=== PATIENT | male | born 1970 | race African-American/Black ===

== ENCOUNTER 2017-02-20 16:35 | Emergency (ER) | payer MEDICARE ==
[2017-02-20 18:19] LABS: ABSOLUTE BASOPHILS # (AUTO) 0.1 10^3/uL (0.0-0.2); ABSOLUTE EOSINOPHILS # (AUTO) 0.1 10^3/uL (0.0-0.6); ABSOLUTE LYMPHOCYTES (AUTO) 3.1 10^3/uL (0.5-4.7); ABSOLUTE MONOCYTES (AUTO) 1.1 10^3/uL (0.1-1.4); ABSOLUTE NEUT (AUTO) 7.7 10^3/uL (1.7-8.2); BASOPHILS % (AUTO) 0.8 % (0-2); EOSINOPHILS % (AUTO) 1.2 % (0-6); HEMATOCRIT 47.4 % (37.9-51.0); HGB HCT DIFFERENCE 0.6; LYMPHOCYTES % (AUTO) 25.7 % (13-45); MEAN CORPUSCULAR HEMOGLOBIN 31.1 pg (27.0-33.4); MEAN CORPUSCULAR HGB CONC 33.6 g/dL (32.0-36.0); MEAN CORPUSCULAR VOLUME 93 fl (80-97); RED BLOOD COUNT 5.12 10^6/uL (4.35-5.55); SEGMENTED NEUTROPHILS % (AUTO) 63.3 % (42-78); WHITE BLOOD COUNT 12.1 10^3/uL (4.0-10.5)
[2017-02-20 18:26] LABS: ALANINE AMINOTRANSFERASE 45 U/L (21-72); ALBUMIN 5.2 g/dL (3.5-5.0); ALCOHOL < 10 mg/dL (NONE DETECTED); ALKALINE PHOSPHATASE 107 U/L (38-126); ANION GAP 18 (5-19); ASPARTATE AMINO TRANSFERASE 63 U/L (17-59); BILIRUBIN,DIRECT 0.5 mg/dL (0.0-0.4); BILIRUBIN,TOTAL 0.6 mg/dL (0.2-1.3); BLOOD UREA NITROGEN 4 mg/dL (7-20); CALCIUM 10.5 mg/dL (8.4-10.2); CARBON DIOXIDE 23 mmol/L (22-30); CHLORIDE 102 mmol/L (98-107); CREATININE RESULT 0.72 mg/dL (0.52-1.25); GLUCOSE 101 mg/dL (75-110); MAGNESIUM 1.9 mg/dL (1.6-2.3); POTASSIUM 4.6 mmol/L (3.6-5.0); SODIUM 142.5 mmol/L (137-145); TOTAL PROTEIN 8.8 g/dL (6.3-8.2)
[2017-02-20] MEDS ORDERED: LEVETIRACETAM 1000 MG/NACL-ISO 1,000 MG/100 ML RTUPB IV ONE (18:45)
--- NOTE | 2017-02-20 18:55 | ER Document Report ---
ED Seizure - General Chief Complaint: Seizure Stated Complaint: PROBABLE SEIZURE Time Seen by Provider: 02/20/17 17:54 Mode of Arrival: Ambulatory Information source: Patient - HPI Patient complains to provider of: History of seizures Quality of pain: No pain Current seizure medications: Keppra Character of seizure: Generalized shaking Post-ictal symptoms: Confusion Injuries: None Notes: Patient is a 47-year-old male with a history of seizure disorder who presents to the emergency room today after having 2 seizures, the first 1 lasting a few minutes, the second one was in the waiting room and lasted approximately 4 minutes, patient denies any pain or injury from the seizures, his longwall headgate operator at bedside does report he was confused afterwards but his mentation is cleared completely, patient takes Keppra for his seizures and denies missing any doses recently, denies any recent illness or any area as well, his last seizure prior to today was 6 months ago - Related Data Allergies/Adverse Reactions: No Known Allergies Allergy (Verified 02/20/17 16:40) Past Medical History - General Information source: Patient, Relative - Social History Smoking Status: Current Every Day Smoker Frequency of alcohol use: None Drug Abuse: None Family History: Reviewed & Not Pertinent Pulmonary Medical History: Reports: Hx Pneumonia Neurological Medical History: Reports: Hx Seizures - ETOH induced Renal/ Medical History: Denies: Hx Peritoneal Dialysis - Immunizations Hx Diphtheria, Pertussis, Tetanus Vaccination: No Review of Systems - Review of Systems Constitutional: No symptoms reported EENT: No symptoms reported Cardiovascular: No symptoms reported Respiratory: No symptoms reported Gastrointestinal: No symptoms reported Genitourinary: No symptoms reported Male Genitourinary: No symptoms reported Musculoskeletal: No symptoms reported Skin: No symptoms reported Hematologic/Lymphatic: No symptoms reported Neurological/Psychological: See HPI -: Yes All other systems reviewed and negative Physical Exam - Vital signs Vitals: Temp Pulse Resp BP Pulse Ox 98.3 F 82 20 138/95 H 99 02/20/17 16:41 02/20/17 16:41 02/20/17 16:41 02/20/17 16:41 02/20/17 16:41 Interpretation: Normal - General General appearance: Appears well, Alert - HEENT Head: Normocephalic, Atraumatic Eyes: Other - 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 Pupils: PERRL - Respiratory Respiratory status: No respiratory distress Chest status: Nontender Breath sounds: Normal Chest palpation: Normal - Cardiovascular Rhythm: Regular Heart sounds: Normal auscultation Murmur: No - Abdominal Inspection: Normal Distension: No distension Bowel sounds: Normal Tenderness: Nontender Organomegaly: No organomegaly - Back Back: Normal, Nontender - Extremities General upper extremity: Normal inspection, Nontender, Normal color, Normal ROM , Normal temperature General lower extremity: Normal inspection, Nontender, Normal color, Normal ROM , Normal temperature, Normal weight bearing. No: Gunnar's sign - Neurological Neuro grossly intact: Yes Cognition: Normal Orientation: AAOx4 [place] Coma Scale Eye Opening: Spontaneous [place] Coma Scale Verbal: Oriented [place] Coma Scale Motor: Obeys Commands [place] Coma Scale Total: 15 Speech: Normal Motor strength normal: LUE, RUE, LLE, RLE Sensory: Normal - Psychological Associated symptoms: Normal affect, Normal mood - Skin Skin Temperature: Warm Skin Moisture: Dry Skin Color: Normal Course - Re-evaluation Re-evalutation: 02/20/17 19:38 Patient feeling much better and ready to go home, labs were discussed with him at bedside which are unremarkable, was provided with information for follow-up with neurology and advised additional concerns, patient and longwall headgate operator at bedside acknowledge understanding and agreement with this plan - Vital Signs Vital signs: Temp Pulse Resp BP Pulse Ox 98.3 F 82 20 138/95 H 99 02/20/17 16:41 02/20/17 16:41 02/20/17 16:41 02/20/17 16:41 02/20/17 16:41 - Laboratory Result Diagrams: 02/20/17 17:55 02/20/17 17:55 Laboratory results interpreted by me: 02/20/17 02/20/17 02/20/17 17:55 17:55 18:34 WBC 12.1 H BUN 4 L POC Glucose 112 H Calcium 10.5 H Direct Bilirubin 0.5 H AST 63 H Total Protein 8.8 H Albumin 5.2 H Urine Ascorbic Acid 02/20/17 18:50 WBC BUN POC Glucose Calcium Direct Bilirubin AST Total Protein Albumin Urine Ascorbic Acid 20 H Discharge - Discharge Clinical Impression: Seizure Condition: Stable Disposition: HOME, SELF-CARE Instructions: Seizure, 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 Return to the emergency room immediately if symptoms worsen or any additional concerns. Referrals: AYAN PETE MD [Primary Care Provider] - Follow up as needed
[2017-02-20 19:20] LABS: APPEARANCE,URINE CLEAR; BILIRUBIN,URINE NEGATIVE (NEGATIVE); GLUCOSE, URINE NEGATIVE (NEGATIVE); KETONES,URINE NEGATIVE (NEGATIVE); LEUKOCYTE ESTERASE,URINE NEGATIVE (NEGATIVE); NITRITE,URINE NEGATIVE (NEGATIVE); PROTEIN,URINE NEGATIVE (NEGATIVE); URINE SPECIFIC GRAVITY 1.004; UROBILINOGEN,URINE NEGATIVE mg/dL (<2.0)
[2017-02-20 19:34] LABS: URINE BARBITURATES SCREEN NEGATIVE; URINE METHADONE SCREEN NEGATIVE; URINE OPIATES LOW NEGATIVE; URINE PHENCYCLIDINE SCREEN NEGATIVE
[2017-02-20 20:00] VITALS: BP 132/78
--- NOTE | 2017-02-20 20:37 | EKG REPORT ---
SEVERITY:- ABNORMAL ECG - SINUS RHYTHM LEFT ATRIAL ABNORMALITY LEFT AXIS DEVIATION : Confirmed by: Troy Bowers 20-Feb-2017 20:36:28
== END 2017-02-20 20:01 | disposition home or self-care (01) ==
LOC: ER 16:35
DX: R56.9 Unspecified convulsions (principal); Z79.899 Other long term (current) drug therapy; F17.200 Nicotine dependence, unspecified, uncomplicated
CPT/HCPCS: 93005; 99284; 96365; 36415; 80177; 82962; 80307 ×2; 83735; 85025; 80053; 81001; 93010; J1953

== ENCOUNTER 2017-12-29 12:01 | Emergency (ER) | payer MEDICARE, MEDICAID ==
--- NOTE | 2017-12-29 12:11 | ER Document Report ---
HPI - HPI Patient complains to provider of: Rash Onset: Other Pain Level: 0 Context: 47-year-old male complaining of hives in his right forearm neck with scratchy throat today thinking it was possible allergic reaction to the penicillin he is taking prior to dental surgery that is scheduled for next month. He started the penicillin on December 23 and is supposed to take it for 1 week. No chest pain or shortness of breath. No history of C. difficile. Associated Symptoms: None Exacerbated by: Denies Relieved by: Denies Similar symptoms previously: No Recently seen / treated by doctor: No - ROS ROS below otherwise negative: Yes Systems Reviewed and Negative: Yes All other systems reviewed and negative Past Medical History - General Information source: Patient - Social History Smoking Status: Current Every Day Smoker Frequency of alcohol use: None Drug Abuse: None Lives with: Family Family History: Reviewed & Not Pertinent Pulmonary Medical History: Reports: Hx Pneumonia Neurological Medical History: Reports: Hx Seizures - ETOH induced Renal/ Medical History: Denies: Hx Peritoneal Dialysis Surgical Hx: Negative - Immunizations Hx Diphtheria, Pertussis, Tetanus Vaccination: No Vertical Provider Document - CONSTITUTIONAL Agree With Documented VS: Yes Exam Limitations: No Limitations - INFECTION CONTROL TRAVEL OUTSIDE OF THE [place] IN LAST 30 DAYS: No - HEENT Notes: Extensive dental decay, posterior pharynx airway is open with no edema no edema to the tongue. - NECK Neck: Supple. negative: Lymphadenopathy-Left, Lymphadenopathy-Right - RESPIRATORY Respiratory: Breath Sounds Normal, No Respiratory Distress - CARDIOVASCULAR Cardiovascular: Regular Rate, Regular Rhythm - DERM Integumentary: Rash - Small wheals dorsal right arm that are pink, none on the neck Discharge - Discharge Clinical Impression: Urticaria Condition: Good Disposition: HOME, SELF-CARE Instructions: Acute Urticaria ([facility]), Use of Diphenhydramine, Clindamycin ([facility]) Additional Instructions: Stop the penicillin Start clindamycin See the dentist as planned Return to the emergency room for worsening of the symptoms Prescriptions: Clindamycin HCl [Cleocin 150 mg Capsule] 300 mg PO TID #42 capsule Referrals: AYAN PETE MD [Primary Care Provider] - Follow up as needed
[2017-12-29 12:14] VITALS: BP 148/81
[2017-12-29] MEDS ORDERED: DIPHENHYDRAMINE HCL 50 MG CAPSULE PO ONE (12:25)
[2017-12-29] MEDS ORDERED: FAMOTIDINE 20 MG TABLET PO ONE (12:25)
[2017-12-29] MEDS ORDERED: DIPHENHYDRAMINE HCL 25 MG/10 ML UDC ONE (12:44)
[2017-12-29] MEDS ORDERED: DIPHENHYDRAMINE HCL 25 MG/10 ML UDC PO ONE (12:44)
== END 2017-12-29 12:58 | disposition home or self-care (01) ==
LOC: ER 12:01
DX: L50.9 Urticaria, unspecified (principal); F17.200 Nicotine dependence, unspecified, uncomplicated
CPT/HCPCS: 99283; A9270 ×2; J3490

== ENCOUNTER → 2018-02-06 | Outpatient (CLI) | payer MEDICARE, MEDICAID ==
[2018-02-07 11:43] LABS: ABSOLUTE EOSINOPHILS # (AUTO) 0.3 10^3/uL (0.0-0.6); ABSOLUTE LYMPHOCYTES (AUTO) 3.1 10^3/uL (0.5-4.7); ABSOLUTE MONOCYTES (AUTO) 0.8 10^3/uL (0.1-1.4); ABSOLUTE NEUT (AUTO) 5.6 10^3/uL (1.7-8.2); BASOPHILS % (AUTO) 0.5 % (0-2); HEMATOCRIT 44.8 % (37.9-51.0); HEMOGLOBIN 15.5 g/dL (13.5-17.0); LYMPHOCYTES % (AUTO) 31.5 % (13-45); MEAN CORPUSCULAR HEMOGLOBIN 31.4 pg (27.0-33.4); MEAN CORPUSCULAR HGB CONC 34.7 g/dL (32.0-36.0); MEAN CORPUSCULAR VOLUME 91 fl (80-97); MONOCYTES % (AUTO) 7.7 % (3-13); PLATELET COUNT 344 10^3/uL (150-450); RED BLOOD COUNT 4.95 10^6/uL (4.35-5.55); RED CELL DISTRIBUTION WIDTH 13.6 % (11.5-14.0); SEGMENTED NEUTROPHILS % (AUTO) 57.3 % (42-78); TOTAL CELLS COUNTED % (AUTO) 100 %; WHITE BLOOD COUNT 9.8 10^3/uL (4.0-10.5)
[2018-02-07 13:05] LABS: ALANINE AMINOTRANSFERASE 29 U/L (21-72); ALBUMIN 4.8 g/dL (3.5-5.0); ALKALINE PHOSPHATASE 63 U/L (38-126); ANION GAP 17 (5-19); ASPARTATE AMINO TRANSFERASE 38 U/L (17-59); BILIRUBIN,DIRECT 0.4 mg/dL (0.0-0.4); BILIRUBIN,TOTAL 0.5 mg/dL (0.2-1.3); BLOOD UREA NITROGEN 6 mg/dL (7-20); CALCIUM 9.9 mg/dL (8.4-10.2); CARBON DIOXIDE 20 mmol/L (22-30); CHLORIDE 105 mmol/L (98-107); GLUCOSE 103 mg/dL (75-110); POTASSIUM 3.8 mmol/L (3.6-5.0); SODIUM 142.4 mmol/L (137-145); TOTAL PROTEIN 8.1 g/dL (6.3-8.2)
[2018-02-10 07:36] LABS: HEPATITIS C VIRUS AB >11.0 s/co ratio (0.0-0.9)
[2018-02-12 14:42] LABS: HEPATITIS C QUANTITATION 1470000 IU/mL (.)
[2018-02-12 16:00] LABS: HEPATITIS C LOG10 6.167 (.)
== END ==
LOC: OD 15:46
PROVIDERS: ATTEND Family Medicine
DX: B18.2 Chronic viral hepatitis C (principal)
CPT/HCPCS: 36415; 80053; 85025; 86803; 86804; 87522

== ENCOUNTER → 2018-03-26 | Day surgery (SDC) | payer MEDICARE, MEDICAID ==
[~2018-03-26] MED LIST: LACTATED RINGERS 1000 ML IV PRN; LIDOCAINE 0.5% INJ-PF (5 MG/ML) 50 ML SDV SUBCUT PRN
== END ==
LOC: OROUT 11:28
PROVIDERS: ATTEND Dentist Oral and Maxillofacial Surgery
DX: R69 Illness, unspecified (principal)

== ENCOUNTER 2018-04-14 10:09 | Day surgery (SDC) | payer MEDICARE, MEDICAID ==
[~2018-04-14 10:09] MED LIST changes: +ACETAMINOPHEN 1,000 MG/100 ML RTUPB IV ONE; +BUPIVACAINE HCL 0.5%/EPI 1:200000 INJ 1.8 ML CARTRIDGE ONE; +DEXAMETHASONE SOD PHOSPHATE INJ 4 MG/1 ML VIAL ONE; +FENTANYL CITRATE INJ/PF 100 MCG/2 ML AMPUL ONE; +LIDOCAINE 2%/EPINEPHRINE INJ 1.7 ML CARTRIDGE ONE; +MIDAZOLAM 2 MG/2 ML INJ ONE; +ONDANSETRON HCL INJ/PF 4 MG/2 ML SDV ONE; +PHENYLEPHRINE HCL 0.25% NASAL SPRAY 15 ML ONE; +PROPOFOL INJ 200 MG/20 ML VIAL IV ONE; +SUCCINYLCHOLINE CHLORIDE INJ 200 MG/10 ML VIAL ONE
[2018-04-14] MEDS ORDERED: MORPHINE SULFATE 10 MG/ML INJ IV PRN (11:43)
[2018-04-14] MEDS ORDERED: DIPHENHYDRAMINE HCL 50 MG/ML VIAL IV PRN (11:43)
[2018-04-14] MEDS ORDERED: FENTANYL CITRATE INJ/PF 100 MCG/2 ML AMPUL IV PRN ×3 (11:43)
[2018-04-14] MEDS ORDERED: ONDANSETRON HCL INJ/PF 4 MG/2 ML SDV IV PRN (11:43)
[2018-04-14] MEDS ORDERED: MEPERIDINE HCL/PF INJ 25 MG/1 ML DISP.SYRIN IV PRN (11:43)
[2018-04-14] MEDS ORDERED: PROMETHAZINE HCL INJ 25 MG/1 ML VIAL IV PRN ×2 (11:43)
[2018-04-14] MEDS ORDERED: OXYCODONE-ACETAMINOPHEN 5-325 MG TABLET PO PRN (13:54)
--- NOTE | 2018-04-14 14:39 | Operative Report ---
Operative Report DATE OF SURGERY: 04/14/18 PREOPERATIVE DIAGNOSIS: Dental caries POSTOPERATIVE DIAGNOSIS: Same OPERATION: Surgical removal of teeth numbers 1, 2, 3, 4, 5, 6, 7, 8, 10, 11, 12 , 13, 14, 15, 16, 18, 19, 20, 21, 30, 31 and 32 with alveloplasties of all 4 quadrants SURGEON: LAURA HINOJOSA ANESTHESIA: GA TISSUE REMOVED OR ALTERED: Teeth and bone which were discarded COMPLICATIONS: None ESTIMATED BLOOD LOSS: 25 mL INTRAOPERATIVE FINDINGS: Grossly decayed and nonrestorable teeth PROCEDURE: The patient was brought into operating room #3 and placed on the operating room table in supine position. General anesthesia was induced via a peripheral IV and continued utilizing nasoendotracheal intubation. The patient was then prepped and draped in the usual fashion for an intraoral procedure. A total of 5 carpules of 2% Lidocaine with 1:100K Epi and 2 carpules of 0.5% Marcaine with 1:200K Epi were delivered to the planned surgical sites via both infiltration and nerve block. The oral cavity and oropharynx were suctioned and a moistened oropharyngeal throat pack was placed. A bite block was used throughout the procedure. Full thickness mucoperisteal flaps were elevated. Ostectomy was completed as needed. Teeth were sectioned as needed. Teeth were delivered with elevators and forceps. Alveoloplasties were completed using rongeurs and bone files. All sites debrided and irrigated. No sinus exposure noted. Mandible intact post op. INESSA not visualized. Wounds reapproximated and sutured with 4-0 chromic gut. The oral cavity was suctioned and found to be free of debris. The throat pack was removed. The oropharynx was suctioned. Gauze packs were placed bilaterally to aid in continued hemastasis. The patient was awakened from general anesthesia, extubated in the operating room and taken to recovery in spontaneous breathing fashion.
[2018-04-14 15:45] VITALS: BP 165/94
== END 2018-04-14 15:25 | disposition home or self-care (01) ==
LOC: OROUT 10:09
PROVIDERS: ATTEND Dentist Oral and Maxillofacial Surgery
DX: K02.9 Dental caries, unspecified (principal); K08.89 Other specified disorders of teeth and supporting structures; F17.210 Nicotine dependence, cigarettes, uncomplicated; E03.9 Hypothyroidism, unspecified; G81.91 Hemiplegia, unspecified affecting right dominant side; G40.909 Epilepsy, unspecified, not intractable, without status epilepticus; B19.20 Unspecified viral hepatitis C without hepatic coma; Z88.0 Allergy status to penicillin; Z79.899 Other long term (current) drug therapy
CPT/HCPCS: 41899; 41874 ×4; J2250; J3490; J1100; J3010; A9270; J0330; J2405; J2704; J0131

== ENCOUNTER 2020-04-10 18:49 | Inpatient (IN) | payer MEDICARE, MEDICAID ==
--- NOTE | 2020-04-10 19:01 | ER Document Report ---
ED Medical Screen (RME) - General Chief Complaint: Weakness Stated Complaint: WEAKNESS Time Seen by Provider: 04/10/20 18:56 Primary Care Provider: SILVIA BRADY DO [Primary Care Provider] - Follow up as needed Mode of Arrival: Wheelchair Information source: Relative Notes: 50-year-old male presented to ED for increasing tremors, confusion, disorientation, staring off to the right. Family member states they took him to the doctor today they told him they would call results of blood work and CT but that has not been done as yet. Family member states his symptoms are increasing and she is concerned and wanted him evaluated for strokelike symptoms. Patient is not in able to answer questions appropriately does have contractures to the right hand. He does have tremors to the right hand. He does stare off to the right side. I have greeted and performed a rapid initial assessment of this patient. A comprehensive ED assessment and evaluation of the patient, analysis of test results and completion of medical decision making process will be conducted by an additional ED providers. TRAVEL OUTSIDE OF THE [place] IN LAST 30 DAYS: No - Related Data Allergies/Adverse Reactions: Penicillins Adverse Reaction (Verified 03/16/18 12:19) Past Medical History - Past Medical History Cardiac Medical History: Denies: Hx Coronary Artery Disease, Hx Heart Attack, Hx Hypertension Pulmonary Medical History: Reports: Hx Pneumonia - 2016 Denies: Hx Asthma, Hx Bronchitis, Hx COPD Neurological Medical History: Reports: Hx Seizures - ETOH induced, LAST EPISODE NOVEMBER 2017.. Denies: Hx Cerebrovascular Accident Renal/ Medical History: Denies: Hx Peritoneal Dialysis Musculoskeltal Medical History: Denies Hx Arthritis - Immunizations Hx Diphtheria, Pertussis, Tetanus Vaccination: No Physical Exam - Vital signs Vitals: Temp Pulse Resp BP Pulse Ox 100.6 F H 105 H 16 122/72 100 04/10/20 18:54 04/10/20 18:54 04/10/20 18:54 04/10/20 18:54 04/10/20 18:54 Course - Vital Signs Vital signs: Temp Pulse Resp BP Pulse Ox 100.6 F H 105 H 16 122/72 100 04/10/20 18:54 04/10/20 18:54 04/10/20 18:54 04/10/20 18:54 04/10/20 18:54 Doctor's Discharge - Discharge Referrals: SILVIA BRADY, [Primary Care Provider] - Follow up as needed
--- NOTE | 2020-04-10 19:17 | RADIOLOGY REPORT (SQ) ---
EXAM DESCRIPTION: CHEST SINGLE VIEW IMAGES COMPLETED DATE/TIME: 04/10/2020 7:10 pm REASON FOR STUDY: Strokelike symptoms COMPARISON: 2016 EXAM PARAMETERS: NUMBER OF VIEWS: One view. TECHNIQUE: Single frontal radiographic view of the chest acquired. RADIATION DOSE: NA LIMITATIONS: None. FINDINGS: LUNGS AND PLEURA: No opacities, masses or pneumothorax. No pleural effusion. MEDIASTINUM AND HILAR STRUCTURES: No masses. Contour normal. HEART AND VASCULAR STRUCTURES: Heart normal in size. Normal vasculature. BONES: No acute findings. HARDWARE: None in the chest. OTHER: No other significant finding. IMPRESSION: NO ACUTE RADIOGRAPHIC FINDING IN THE CHEST. TECHNICAL DOCUMENTATION: JOB ID: [id number] 2010 [employer]- All Rights Reserved Reading location - IP/workstation name: [email or web address]
--- NOTE | 2020-04-10 19:36 | RADIOLOGY REPORT (SQ) ---
EXAM DESCRIPTION: CT HEAD WITHOUT IMAGES COMPLETED DATE/TIME: 04/10/2020 7:25 pm REASON FOR STUDY: Strokelike symptoms COMPARISON: 2016 TECHNIQUE: Axial images acquired through the brain without intravenous contrast. Images reviewed wi th bone, brain and subdural windows. Additional sagittal and coronal reconstructions were generated. Images stored on PACS. All CT scanners at this facility use dose modulation, iterative reconstruction, and/or weight based d osing when appropriate to reduce radiation dose to as low as reasonably achievable (ALARA). [facility]: Dose Right [facility]: CareDose [facility]: Dose Right [facility]: Teradose 4D [facility]: [employer] RADIATION DOSE: CT Rad equipment meets quality standard of care and radiation dose reduction techniq ues were employed. CTDIvol: 53.2 mGy. DLP: 1017 mGy-cm. mGy. LIMITATIONS: None. FINDINGS: VENTRICLES: Normal size and contour. CEREBRUM: No masses. No hemorrhage. No midline shift. Pre-existing left posterior parietal encepha lomalacia. Pre-existing left frontal encephalomalacia. 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 No evidence for acute infarction. Normal contreras/white matter differentiation. No areas of low density in the white matter. CEREBELLUM: No masses. No hemorrhage. No alteration of density. No evidence for acute infarction. EXTRAAXIAL SPACES: No fluid collections. No masses. ORBITS AND GLOBE: Left optic prosthesis. CALVARIUM: Craniotomy changes on the left. PARANASAL SINUSES: No fluid or mucosal thickening. SOFT TISSUES: No mass or hematoma. OTHER: No other significant finding. IMPRESSION: There are chronic findings. There is no acute intracranial imaging finding. EVIDENCE OF ACUTE STROKE: NO. COMMENT: Quality ID # [id number]: Final reports with documentation of one or more dose reduction techniques (e.g., Automated exposure control, adjustment of the mA and/or kV according to patient size, use of iterative reconstruction technique) TECHNICAL DOCUMENTATION: JOB ID: [id number] 2010 [employer]- All Rights Reserved Reading location - IP/workstation name: [email or web address]
--- NOTE | 2020-04-10 19:37 | EKG REPORT ---
SEVERITY:- ABNORMAL ECG - SINUS TACHYCARDIA KIMBERLI, CONSIDER BIATRIAL ABNORMALITIES INFERIOR INFARCT, AGE INDETERMINATE : Confirmed by: Griffin Caal MD 10-Apr-2020 19:36:44
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
[2020-04-10] MEDS ORDERED: ACETAMINOPHEN 325 MG TABLET PO ONE (20:26)
[2020-04-10] MEDS ORDERED: LORAZEPAM INJ 2 MG/1 ML VIAL IV ONE (20:28)
[2020-04-10] MEDS ORDERED: RINGERS SOLUTION,LACTATED 1,000 ML IV PRN (20:29)
[2020-04-10 20:51] LABS: ABSOLUTE BASOPHILS # (AUTO) 0.2 10^3/uL (0.0-0.2); ABSOLUTE EOSINOPHILS # (AUTO) 0.1 10^3/uL (0.0-0.6); ABSOLUTE LYMPHOCYTES (AUTO) 2.9 10^3/uL (0.5-4.7); ABSOLUTE MONOCYTES (AUTO) 1.5 10^3/uL (0.1-1.4); ABSOLUTE NEUT (AUTO) 9.5 10^3/uL (1.7-8.2); BASOPHILS % (AUTO) 1.2 % (0-2); EOSINOPHILS % (AUTO) 0.5 % (0-6); HEMATOCRIT 51.6 % (37.9-51.0); LYMPHOCYTES % (AUTO) 20.6 % (13-45); MEAN CORPUSCULAR HEMOGLOBIN 31.5 pg (27.0-33.4); MEAN CORPUSCULAR HGB CONC 34.8 g/dL (32.0-36.0); MEAN CORPUSCULAR VOLUME 90 fl (80-97); MONOCYTES % (AUTO) 10.4 % (3-13); PLATELET COUNT 387 10^3/uL (150-450); RED BLOOD COUNT 5.71 10^6/uL (4.35-5.55); RED CELL DISTRIBUTION WIDTH 13.3 % (11.5-14.0); SEGMENTED NEUTROPHILS % (AUTO) 67.3 % (42-78); TOTAL CELLS COUNTED % (AUTO) 100 %; WHITE BLOOD COUNT 14.2 10^3/uL (4.0-10.5)
[2020-04-10 21:14] LABS: ALBUMIN 5.7 g/dL (3.5-5.0); ALKALINE PHOSPHATASE 91 U/L (38-126); ANION GAP 17 (5-19); ASPARTATE AMINO TRANSFERASE 41 U/L (17-59); BILIRUBIN,DIRECT 0.5 mg/dL (0.0-0.4); BILIRUBIN,TOTAL 0.9 mg/dL (0.2-1.3); BLOOD UREA NITROGEN 10 mg/dL (7-20); CALCIUM 11.4 mg/dL (8.4-10.2); CARBON DIOXIDE 24 mmol/L (22-30); CHLORIDE 99 mmol/L (98-107); GLUCOSE 91 mg/dL (75-110); POTASSIUM 4.9 mmol/L (3.6-5.0); TOTAL PROTEIN 9.8 g/dL (6.3-8.2)
[2020-04-10 21:15] LABS: ALCOHOL < 10 mg/dL (NONE DETECTED)
[2020-04-10 22:18] LABS: VENOUS BLOOD BASE EXCESS 0.1 mmol/L; VENOUS BLOOD HCO3 25.2 mmol/L (20-32); VENOUS BLOOD PCO2 42.3 mmHg (35-63); VENOUS BLOOD PH 7.39 (7.30-7.42)
[2020-04-11 01:03] LABS: APPEARANCE,URINE CLEAR; BILIRUBIN,URINE NEGATIVE (NEGATIVE); COLOR,URINE YELLOW; GLUCOSE, URINE >=500 mg/dL (NEGATIVE); KETONES,URINE 20 mg/dL (NEGATIVE); LEUKOCYTE ESTERASE,URINE NEGATIVE (NEGATIVE); NITRITE,URINE NEGATIVE (NEGATIVE); PROTEIN,URINE NEGATIVE (NEGATIVE); URINE SPECIFIC GRAVITY 1.017; UROBILINOGEN,URINE NEGATIVE mg/dL (<2.0)
[2020-04-11 01:21] LABS: A TYPE INFLUENZA AG NEGATIVE (NEGATIVE); B INFLUENZA AG NEGATIVE (NEGATIVE)
[2020-04-11] MEDS ORDERED: LEVETIRACETAM 1000 MG/NACL-ISO 1,000 MG/100 ML RTUPB IV ONE (01:27)
[2020-04-11] MEDS ORDERED: LIDOCAINE 1% INJ-PF (10 MG/ML) 30 ML SDV INJ ONE (01:28)
[2020-04-11 01:35] LABS: URINE AMPHETAMINES SCREEN NEGATIVE; URINE BARBITURATES SCREEN NEGATIVE; URINE BENZODIAZEPINES SCREEN NEGATIVE; URINE COCAINE SCREEN NEGATIVE; URINE MARIJUANA (THC) SCREEN NEGATIVE; URINE METHADONE SCREEN NEGATIVE; URINE PHENCYCLIDINE SCREEN NEGATIVE
[2020-04-11] MEDS ORDERED: CEFTRIAXONE INJ 1000 MG VIAL IV ONE (02:32)
[2020-04-11] MEDS ORDERED: VANCOMYCIN HCL INJ 1000 MG VIAL IV ONE (02:32)
[2020-04-11] MEDS ORDERED: ACYCLOVIR SODIUM INJ/PF 500 MG/10 ML SDV IV ONE (02:34)
[2020-04-11] MEDS ORDERED: KETOROLAC TROMETHAMINE INJ/PF 30 MG/1 ML SDV IV ONE (02:35)
[2020-04-11 03:20] LABS: APPEARANCE ALL TUBES CLEAR; COLOR ALL TUBES COLORLESS; CSF TUBE NUMBER 1; VOLUME TUBE 2 1.5 CC; VOLUME TUBE 3 1.5 CC
[2020-04-11 03:21] LABS: CSF TOTAL VOLUME 6.3 CC; VOLUME TUBE 1 1.5 CC; VOLUME TUBE 4 1.8 CC
[2020-04-11 03:30] LABS: APPEARANCE ALL TUBES CLEAR; COLOR ALL TUBES COLORLESS; CSF TOTAL VOLUME 6.3 CC; CSF TUBE NUMBER 4; VOLUME TUBE 1 1.5 CC; VOLUME TUBE 2 1.5 CC; VOLUME TUBE 3 1.5 CC; VOLUME TUBE 4 1.8 CC
[2020-04-11 03:35] LABS: GLUCOSE,CSF 85 mg/dL (40-70); PROTEIN,CSF 39 mg/dL (12-60)
[2020-04-11 03:51] LABS: WHITE BLOOD CELL,CSF 5 /uL (0-5)
[2020-04-11 03:52] LABS: RED BLOOD CELL,CSF 16 /uL (0-10)
[2020-04-11 04:05] LABS: RED BLOOD CELL,CSF 2 /uL (0-10)
[2020-04-11 04:06] LABS: WHITE BLOOD CELL,CSF 4 /uL (0-5)
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
[2020-04-11] MEDS ORDERED: INFLUENZA QUAD (6MOS+) 2020-21 VAC 0.5 ML SYR IM ONE (13:15)
[2020-04-11] MEDS ORDERED: ALBUTEROL SULFATE 0.083% NEB 2.5 MG/3 ML AMPUL NEB PRN (20:19)
[2020-04-11] MEDS ORDERED: ONDANSETRON HCL INJ/PF 4 MG/2 ML SDV IV PRN (20:19)
[2020-04-11] MEDS ORDERED: MAG HYDROX/AL HYDROX/SIMETH SUSP 30 ML UDCUP PO PRN (20:19)
[2020-04-11] MEDS: NORMAL SALINE 1000 ML 1,000 ML IV PRN (21:06)
[2020-04-11] MEDS: ACETAMINOPHEN 325 MG TABLET PO PRN (23:38)
[2020-04-12 04:50] LABS: ALKALINE PHOSPHATASE 53 U/L (38-126); ANION GAP 13 (5-19); ASPARTATE AMINO TRANSFERASE 34 U/L (17-59); BILIRUBIN,DIRECT 0.4 mg/dL (0.0-0.4); BILIRUBIN,TOTAL 0.7 mg/dL (0.2-1.3); BLOOD UREA NITROGEN 12 mg/dL (7-20); CALCIUM 9.7 mg/dL (8.4-10.2); CARBON DIOXIDE 18 mmol/L (22-30); CHLORIDE 108 mmol/L (98-107); GLUCOSE 97 mg/dL (75-110); POTASSIUM 4.1 mmol/L (3.6-5.0); TOTAL PROTEIN 6.8 g/dL (6.3-8.2)
[2020-04-12 04:54] LABS: HEMATOCRIT 39.7 % (37.9-51.0); MEAN CORPUSCULAR HGB CONC 34.3 g/dL (32.0-36.0); MEAN CORPUSCULAR VOLUME 90 fl (80-97); PLATELET COUNT 340 10^3/uL (150-450); RED CELL DISTRIBUTION WIDTH 13.2 % (11.5-14.0); WHITE BLOOD COUNT 13.8 10^3/uL (4.0-10.5)
[2020-04-12 05:09] LABS: HEMOGLOBIN 13.6 g/dL (13.5-17.0)
[2020-04-12] MEDS: NORMAL SALINE 1000 ML 1,000 ML IV PRN (05:44)
[2020-04-12] MEDS ORDERED: VANCOMYCIN HCL 0 MG in DEXTROSE 5%-WATER 250 ML IV NR (08:30)
[2020-04-12] MEDS: ENOXAPARIN SODIUM INJ 40 MG/0.4 ML DISP.SYRIN SUBCUT SCH (09:24)
[2020-04-12] MEDS: LEVETIRACETAM 500 MG TABLET PO SCH ×3 (09:24→18:44)
[2020-04-12] MEDS: DOCUSATE SODIUM 100 MG CAPSULE PO SCH (09:24)
[2020-04-12] MEDS ORDERED: CEFTRIAXONE 2 GM/D5W RTU 2 GM/50 ML RTUPB IV SCH (10:00)
[2020-04-12] MEDS ORDERED: ACYCLOVIR SODIUM 500 MG in NORMAL SALINE 100 ML IV SCH (14:00)
[2020-04-12] MEDS ORDERED: VANCOMYCIN HCL 750 MG in DEXTROSE 5%-WATER 250 ML IV SCH (16:00)
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
[2020-04-12 19:16] LABS: APPEARANCE,URINE CLOUDY; BILIRUBIN,URINE NEGATIVE (NEGATIVE); COLOR,URINE YELLOW; GLUCOSE, URINE NEGATIVE (NEGATIVE); KETONES,URINE NEGATIVE (NEGATIVE); LEUKOCYTE ESTERASE,URINE MODERATE (NEGATIVE); NITRITE,URINE NEGATIVE (NEGATIVE); PROTEIN,URINE NEGATIVE (NEGATIVE); UROBILINOGEN,URINE NEGATIVE mg/dL (<2.0)
[2020-04-12] MEDS ORDERED: NICOTINE 7 MG/24 HR PATCH.TD24 TD PRN (19:46)
[2020-04-12] MEDS ORDERED: LORAZEPAM INJ 2 MG/1 ML VIAL IV PRN (19:50)
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
[2020-04-12] MEDS: ACETAMINOPHEN 325 MG TABLET PO PRN (23:17)
[2020-04-13] MEDS: FOLIC ACID 1 MG TABLET PO SCH (09:35)
[2020-04-13] MEDS: DOCUSATE SODIUM 100 MG CAPSULE PO SCH (09:35)
[2020-04-13] MEDS: THIAMINE HCL 100 MG TABLET PO SCH (09:36)
[2020-04-13] MEDS: LEVETIRACETAM 500 MG TABLET PO SCH ×3 (09:36→21:08)
[2020-04-13] MEDS: ENOXAPARIN SODIUM INJ 40 MG/0.4 ML DISP.SYRIN SUBCUT SCH (09:37)
[2020-04-13 10:59] LABS: HSV SOURCE CSF
[2020-04-13] MEDS ORDERED: LORAZEPAM INJ 2 MG/1 ML VIAL IV ONE ×2 (14:13→14:18)
[2020-04-13] MEDS ORDERED: LEVETIRACETAM 500 MG TABLET PO ONE ×2 (14:50→15:30)
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
[2020-04-13 16:38] LABS: HEMATOCRIT 39.1 % (37.9-51.0); HEMOGLOBIN 13.5 g/dL (13.5-17.0); MEAN CORPUSCULAR HEMOGLOBIN 31.1 pg (27.0-33.4); MEAN CORPUSCULAR HGB CONC 34.6 g/dL (32.0-36.0); MEAN CORPUSCULAR VOLUME 90 fl (80-97); PLATELET COUNT 357 10^3/uL (150-450); RED BLOOD COUNT 4.35 10^6/uL (4.35-5.55); RED CELL DISTRIBUTION WIDTH 12.9 % (11.5-14.0); WHITE BLOOD COUNT 11.4 10^3/uL (4.0-10.5)
[2020-04-13 16:59] LABS: ANION GAP 11 (5-19); BLOOD UREA NITROGEN 12 mg/dL (7-20); CARBON DIOXIDE 26 mmol/L (22-30); CHLORIDE 99 mmol/L (98-107); GLUCOSE 112 mg/dL (75-110); POTASSIUM 3.9 mmol/L (3.6-5.0)
[2020-04-13] MEDS ORDERED: LEVETIRACETAM 3,000 MG in NORMAL SALINE 100 ML IV ONE (20:09)
[2020-04-13] MEDS: NORMAL SALINE 1000 ML 1,000 ML IV PRN (21:08)
[2020-04-14] MEDS: NORMAL SALINE 1000 ML 1,000 ML IV PRN ×3 (04:33→22:03)
[2020-04-14] MEDS: ACETAMINOPHEN 325 MG TABLET PO PRN (04:38)
[2020-04-14 05:57] LABS: HEMATOCRIT 38.7 % (37.9-51.0); HEMOGLOBIN 13.7 g/dL (13.5-17.0); MEAN CORPUSCULAR HGB CONC 35.4 g/dL (32.0-36.0); MEAN CORPUSCULAR VOLUME 90 fl (80-97); PLATELET COUNT 350 10^3/uL (150-450); RED BLOOD COUNT 4.28 10^6/uL (4.35-5.55); RED CELL DISTRIBUTION WIDTH 12.9 % (11.5-14.0); WHITE BLOOD COUNT 10.1 10^3/uL (4.0-10.5)
[2020-04-14 06:19] LABS: ANION GAP 10 (5-19); BLOOD UREA NITROGEN 7 mg/dL (7-20); CALCIUM 9.6 mg/dL (8.4-10.2); CARBON DIOXIDE 20 mmol/L (22-30); CHLORIDE 109 mmol/L (98-107); GLUCOSE 94 mg/dL (75-110); PHOSPHORUS 3.2 mg/dL (2.5-4.5); POTASSIUM 3.9 mmol/L (3.6-5.0)
[2020-04-14] MEDS: THIAMINE HCL 100 MG TABLET PO SCH (09:48)
[2020-04-14] MEDS: FOLIC ACID 1 MG TABLET PO SCH (09:48)
[2020-04-14] MEDS: DOCUSATE SODIUM 100 MG CAPSULE PO SCH (09:48)
[2020-04-14] MEDS: LEVETIRACETAM 500 MG TABLET PO SCH ×2 (09:48→22:04)
[2020-04-14] MEDS: ENOXAPARIN SODIUM INJ 40 MG/0.4 ML DISP.SYRIN SUBCUT SCH (09:49)
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
[2020-04-14] MEDS ORDERED: DIVALPROEX SODIUM 250 MG TABLET.DR PO ONE (14:00)
[2020-04-14] MEDS ORDERED: PHENYTOIN SODIUM EXTENDED 100 MG CAPSULE PO ONE (18:31)
--- NOTE | 2020-04-14 18:42 | NEURO WORKBENCH EEG REPORT ---
EEG Report Patient: Lorenzo Quinn ID: [id number] Referring Doctor: Monica Hopper DOS: Medications: colace, lovenox, folvite, keppra, thiamine History This is a 50 year old left handed male with a history of TBI, ethanol withdrawal seizures, pneumonia in 2017, hepatitis C, right hemiparesis admitted with status epilepticus. EEG yesterday showed status epilepticus. This EEG was requested for evaluation of seizures. EEG Interpretation This EEG was recorded in the awake state only. There was an asymmetry with the awake EEG characterized by a disorganized background without a well-developed but briefly noted posterior rhythm of 9 Hz on the right side only. There was mu noted on the right with a mix of alpha and beta frequencies. The left side consisted of nearly continuous periodic lateralized epileptiform discharges (PLEDs) in the frontal-central region with polymorphic delta and theta slowing. There were several electroclinical seizures noted consisting of high frequency beta activity starting in the right central region some that generalized associated with head turning to the right and sometimes left arm movement upward. These lasted ~2 minutes in duration. Clinical recovery in between the paroxysmal events is not clear in the study. The EEG onset was associated with similar findings on the EEG but unknown if there was a clear clinical correlation. Photic stimulation resulted in no significant changes. Hyperventilation resulted in no significant changes. EKG showed periods of an irregular rhythm. There was artifact during the study that impaired interpretation. EEG Classification * Electroclinical seizures, left frontal-central onset * PLEDs, left frontal-central * Asymmetric background * Continuous polymorphic delta-theta slowing, left * Artifact * EKG irregular rhythm EEG Impression This EEG is abnormal. It continues to show frequent electroclinical seizures. It is unclear if there is clinical recovery in between the events. Compared to the EEG dated 04/13/2020 it is similar. Treatment with further antiepileptic medication for status epilepticus and transfer to a center that provides continuous EEG monitoring as clinically feasible are again recommended. The findings of this study were discussed on the phone with Monica Hopper at approximately 18:30h. INTERPRETING NEUROLOGIST: Romana Perea MD, FRCPC Board Certified in Neurology, with special qualification in Child Neurology, and in Clinical Neurophysiology [facility]
[2020-04-14] MEDS ORDERED: DIVALPROEX SODIUM 250 MG TABLET.DR PO SCH (22:00)
[2020-04-14] MEDS: PHENYTOIN SODIUM EXTENDED 100 MG CAPSULE PO SCH (22:04)
[2020-04-15] MEDS: PHENYTOIN SODIUM EXTENDED 100 MG CAPSULE PO SCH ×2 (00:33→22:05)
[2020-04-15] MEDS: NORMAL SALINE 1000 ML 1,000 ML IV PRN (05:12)
[2020-04-15] MEDS: DOCUSATE SODIUM 100 MG CAPSULE PO SCH (09:29)
[2020-04-15] MEDS: THIAMINE HCL 100 MG TABLET PO SCH (09:30)
[2020-04-15] MEDS: FOLIC ACID 1 MG TABLET PO SCH (09:30)
[2020-04-15] MEDS: LEVETIRACETAM 500 MG TABLET PO SCH ×2 (09:30→22:06)
[2020-04-15] MEDS: ENOXAPARIN SODIUM INJ 40 MG/0.4 ML DISP.SYRIN SUBCUT SCH (09:30)
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
[2020-04-15] MEDS: ACETAMINOPHEN 325 MG TABLET PO PRN (20:32)
[2020-04-16] MEDS: PHENYTOIN SODIUM EXTENDED 100 MG CAPSULE PO SCH ×2 (06:42→13:06)
[2020-04-16] MEDS: DOCUSATE SODIUM 100 MG CAPSULE PO SCH (09:06)
[2020-04-16] MEDS: ENOXAPARIN SODIUM INJ 40 MG/0.4 ML DISP.SYRIN SUBCUT SCH (09:33)
[2020-04-16] MEDS: LEVETIRACETAM 500 MG TABLET PO SCH (09:33)
[2020-04-16] MEDS: FOLIC ACID 1 MG TABLET PO SCH (09:33)
[2020-04-16] MEDS: THIAMINE HCL 100 MG TABLET PO SCH (09:33)
[2020-04-16 14:10] VITALS: BP 122/72
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
== END 2020-04-16 14:39 | disposition home or self-care (01) | DRG 101 ==
LOC: ER 18:49 → EH 04-11 03:12 → INTOOBSV 04-11 03:12 → 3N 04-11 08:52 → 4W 04-12 11:33 → OBSVTOIN 04-13 15:06 → 3W 04-13 17:04
PROVIDERS: ADMIT Emergency Medicine; ATTEND Registered Nurse
PROC: 00JU3ZZ Inspection of Spinal Canal, Percutaneous Approach (ICD-10-PCS; principal; 2020-04-11)
PROC: HZ2ZZZZ Detoxification Services for Substance Abuse Treatment (ICD-10-PCS; 2020-04-12)
DX: G40.201 Localization-related (focal) (partial) symptomatic epilepsy and epileptic syndromes with complex partial seizures, not intractable, with status epilepticus (principal); G93.40 Encephalopathy, unspecified; F10.20 Alcohol dependence, uncomplicated; F17.210 Nicotine dependence, cigarettes, uncomplicated; Z60.2 Problems related to living alone; Z88.0 Allergy status to penicillin; Z79.899 Other long term (current) drug therapy; Z86.73 Personal history of transient ischemic attack (TIA), and cerebral infarction without residual deficits; Z87.820 Personal history of traumatic brain injury
CPT/HCPCS: 36415; 70450; 70551; 71045; 71250; 74176; 80048; 80053; 80061; 80177; 80307; 81001; 82533; 82803; 82945; 83605; 83735; 83970; 84100; 84157; 84439; 84443; 84481; 85025; 85027; 86308; 86592; 86701; 87040; 87070; 87086; 87205; 87252; 87529; 87635; 87804; 87880; 89050; 93005; 93010; 95819; 96365; 96367; 96375; 99285; C9803; G0378; J0133; J0696; J1650; J1885; J1953; J2060; J3370; J3490; J7030; J7120

== ENCOUNTER → 2020-04-10 | Outpatient (CLI) | payer MEDICARE, MEDICAID ==
[2020-04-10 12:15] LABS: ABSOLUTE BASOPHILS # (AUTO) 0.1 10^3/uL (0.0-0.2); ABSOLUTE EOSINOPHILS # (AUTO) 0.1 10^3/uL (0.0-0.6); ABSOLUTE LYMPHOCYTES (AUTO) 2.6 10^3/uL (0.5-4.7); ABSOLUTE MONOCYTES (AUTO) 1.1 10^3/uL (0.1-1.4); ABSOLUTE NEUT (AUTO) 8.9 10^3/uL (1.7-8.2); BASOPHILS % (AUTO) 0.6 % (0-2); EOSINOPHILS % (AUTO) 0.6 % (0-6); HEMATOCRIT 49.2 % (37.9-51.0); LYMPHOCYTES % (AUTO) 20.1 % (13-45); MEAN CORPUSCULAR HEMOGLOBIN 31.4 pg (27.0-33.4); MEAN CORPUSCULAR HGB CONC 34.5 g/dL (32.0-36.0); MEAN CORPUSCULAR VOLUME 91 fl (80-97); MONOCYTES % (AUTO) 8.7 % (3-13); PLATELET COUNT 377 10^3/uL (150-450); RED BLOOD COUNT 5.42 10^6/uL (4.35-5.55); RED CELL DISTRIBUTION WIDTH 13.1 % (11.5-14.0); TOTAL CELLS COUNTED % (AUTO) 100 %; WHITE BLOOD COUNT 12.7 10^3/uL (4.0-10.5)
[2020-04-10 12:43] LABS: ALBUMIN 5.6 g/dL (3.5-5.0); ALKALINE PHOSPHATASE 85 U/L (38-126); ANION GAP 17 (5-19); ASPARTATE AMINO TRANSFERASE 39 U/L (17-59); BILIRUBIN,DIRECT 0.4 mg/dL (0.0-0.4); BILIRUBIN,TOTAL 0.9 mg/dL (0.2-1.3); BLOOD UREA NITROGEN 8 mg/dL (7-20); CALCIUM 10.8 mg/dL (8.4-10.2); CARBON DIOXIDE 25 mmol/L (22-30); CHLORIDE 97 mmol/L (98-107); CHOLESTEROL 175.66 mg/dL (0-200); GLUCOSE 95 mg/dL (75-110); POTASSIUM 4.6 mmol/L (3.6-5.0); TOTAL PROTEIN 9.1 g/dL (6.3-8.2); TRIGLYCERIDES 65 mg/dL (<150)
[2020-04-10 12:58] LABS: DIRECT LDL 106 mg/dL (<100)
[2020-04-10 13:02] LABS: FREE T3 5.53 pg/mL (2.77-5.27); FREE T4 (FREE THYROXINE) 1.33 ng/dL (0.78-2.19)
[2020-04-10 13:16] LABS: THYROID STIMULATING HORMONE 5.67 uIU/mL (0.47-4.68)
== END ==
LOC: OD 10:36
PROVIDERS: ATTEND Family Medicine
DX: E03.9 Hypothyroidism, unspecified (principal); G40.909 Epilepsy, unspecified, not intractable, without status epilepticus; Z13.220 Encounter for screening for lipoid disorders; Z13.29 Encounter for screening for other suspected endocrine disorder
CPT/HCPCS: 36415; 80053; 80061; 80177; 84439; 84443; 84481; 85025